=== PATIENT | female | born 1995 | race Caucasian/White ===

== ENCOUNTER 2018-10-09 13:54 | Emergency (ER) | payer BC ==
[2018-10-09 14:01] VITALS: BP 115/73
--- NOTE | 2018-10-09 14:37 | EDPHY ---
General Time Seen by Provider: 10/09/18 14:34 Narrative: CLINICAL IMPRESSION: Insect bite verses contact dermatitis ASSESSMENT/PLAN: Patient is a 23-year-old female with no significant medical history, who is fully vaccinated, presents to the ED with a rash that has been present for the last 3 days. The patient is well appearing, afebrile and in no acute distress. Physical examination reveals few small, faintly pink raised nontender lesions. Patient has had no recent medication use, do not suspect drug reaction. Patient has had no fever or URI symptoms and there are no signs of meningismus. There were no clinical findings to suggest anaphylaxis, SJS/TENS, Kawasaki's, varicella virus, measles, roseola, rubella or erythema infectiosum. There was no target lesion to suggest tick-borne illness. Query insect bites verses contact dermatitis as patient has been using new topical products. Patient will discontinue use of new product, will follow up with PCP next week. Return precautions discussed. CHIEF COMPLAINT: "Bumps all over body" HPI: Patient is a 23-year-old female with a history of ADD who presents to the emergency department with complaints of small red bumps on her stomach, back, arm and thigh. Patient was outside most of the weekend, she noticed very small faint pink bumps on her abdomen and then noticed some on her back, thigh and upper arm. [place], no change in living situation. No recent camping or travel. No one else with similar symptoms. Patient does endorse recent change in soap products as well as spending a lot of time outside this weekend. She denies any similar episodes, denies any itching, pain, purulent drainage or fever. Patient has not tried any treatment. ROS: Otherwise negative, please see HPI. PHYSICAL EXAM: General Appearance: Well-developed, well-appearing and in no acute distress. Respiratory: There are no retractions, lungs are clear to auscultation. Cardiac: Regular rate and rhythm, no murmurs or gallops. Gastrointestinal: Abdomen is soft, nontender, bowel sounds normal, no masses/ hernia, no rigidity, guarding or focal peritoneal findings. Skin: Warm, dry. Patient with scant, mildly pink and slightly raised 1 cm circular lesions on her abdomen, right upper thigh, back and arm. No surrounding erythema, no target lesion, no vesicle, nodule, fluctuance or purulent drainage. There are a total of 9 lesions that I can count, all less than a cm. There is no petechial rash. Neuro: Alert and oriented x3, Cranial nerves 2-12 grossly intact. No focal deficit. Psych: Normal mood, normal affect. No agitation. MEDICAL DECISION MAKING: Patient was seen independently. Secondary supervising physician at time of evaluation was Dr. Stern, he did not evaluate this patient. Diagnosis: Insect bite versus contact dermatitis. Summary: See Assessment and Plan for summary of ED visit Clinical lab tests: Not applicable. Independent visualization of images, tracing, or specimens: Not applicable. Decision to obtain medical records or history from someone other than the patient: No Review / Summarize previous medical records: Yes Patient Progress: Stable, discharge. - History Smoking Status: Never smoked - Objective Vital Signs: Initial Vital Signs Temperature (C) 36.9 C 10/09/18 13:57 Heart Rate 74 10/09/18 13:57 Respiratory Rate 18 10/09/18 13:57 Blood Pressure 115/73 10/09/18 13:57 O2 Sat (%) 96 10/09/18 13:57 O2 Delivery Mode Room Air Allergies/Adverse Reactions: No Known Allergies Allergy (Unverified 10/09/18 14:01) Home Medications: Medication Instructions Recorded Adderall 20 mg (*) 10/09/18 Hydroxyzine HCl 10/09/18 Departure - Departure Disposition: Home, Routine, Self-Care Clinical Impression: Insect bite Condition: Good Instructions: Insect Bite or Sting (ED), Acute Rash (ED) Additional Instructions: DISCHARGE INSTRUCTIONS FROM YOUR PROVIDER Thank you for visiting our emergency department today. Please keep in mind that discharge from the emergency department does not mean that there is nothing wrong - it simply means that we have not identified an emergency condition that requires further evaluation or treatment in the hospital. You should always plan to follow up with primary care for re-evaluation of your condition in the next 2-3 days. Wear loose fitting clothing. Use hypoallergenic skin products. Apply a lot of moisturizer, often. Consider aveeno oatmeal baths, cool water if itching. Schedule a follow-up visit with your primary care physician next week, particularly if the rash doesn't resolve, if it returns after completing the medication (sometimes rebound hives occur after stopping the steroid), is associated with other symptoms and/or to discuss the possibility of pursuing allergy testing. Return for increased rash, new type of skin lesions, sores in or around the eyes , other eye complaints, development of fever, shaking chills, facial swelling, arm or leg swelling, difficulty breathing or swallowing, sore throat, severe headache, neck pain or stiffness, vomiting, dizziness, weakness, cough, wheezing , bloody urine, decreased urine output, chest pain, abdominal pain, pain, redness/swelling around any of the areas scratched, joint redness or swelling, or for any other new, worsening or worrisome symptoms. People present with illnesses and injuries in different ways, and it is always possible that we have missed something. Again, thank you for choosing our emergency department. We hope that you feel better. Referrals: Vida Cordova MD [Medical Doctor] - 3-4 days, if not improved
== END 2018-10-09 14:40 | disposition home or self-care (01) ==
DX: R21 Rash and other nonspecific skin eruption (principal)